=== PATIENT | male | born 1975 | race American Indian/Alaskan Native ===

== ENCOUNTER 2018-04-19 09:54 | Emergency (ER) | payer OTHER ==
[~2018-04-19 09:54] MED LIST: ADRENALIN ONE; D50W (25GM) Syringe IV ONE; SODIUM BICARBONATE IV ONE
[2018-04-19] MEDS ORDERED: NACL 0.9% 1000 ML 1,000 ML IV ONE (09:55)
--- NOTE | 2018-04-19 10:19 | Emergency Department Report ---
ED CPR HPI - General Stated Complaint: CARDIAC ARREST Time Seen by Provider: 04/19/18 10:15 Source: EMS - History of Present Illness Initial Comments: Patient is 42 years old male with history of hypertension. Patient brought into the ER in full cardiac arrest, CPR in progress. EMS stated that they received a call from the family that patient is not responding. Family stated that last time the patient was seen normal was 7:00 this morning when he went to the bathroom. EMS report that patient was found unresponsive with no spontaneous breathing, patient immediately intubated by EMS, ACLS protocol initiated and continued patient initial rhythm was asystole and patient continued to be in asystole throughout resuscitation. Upon arrival to the ER, ACLS protocol continued. ET tube confirmed by me, by good breath sounds on both sides and capnometry. Patient continued to be in asystole. Patient pronounced at 10:05 AM. For further information please refer to the code sheets. Family informed. Family stated that he was complaining of headache yesterday. MD Complaint: found unresponsive Onset/Timin -: hour(s) Place: home Bystander CPR Performed: No AED Applied by Bystander/Assembly Manager: No Shock Advised: No Initial Findings in the Field: no respirations, no pulse, systole Treatments Prior to Arrival: intubation, epinephrine mgs # (3 mg), sodium bicarbonate ED Review of Systems ROS: Stated complaint: CARDIAC ARREST Other details as noted in HPI Comment: Unobtainable due to pts medical conditions ED Past Medical Hx - Past Medical History Hx Hypertension: Yes ED Physical Exam - General General appearance: other (intubated) - Head Head exam: Present: atraumatic, normocephalic - Eye Pupils: Present: other (pupils 4 mm, fixed and dilated and nonreactive to light. ) - ENT ENT exam: Present: normal exam - Respiratory Respiratory exam: Present: other (no spontaneous respiration) - Cardiovascular Cardiovascular Exam: Present: other (no heart tones, no pulse) - GI/Abdominal GI/Abdominal exam: Present: soft. Absent: distended - Neurological Exam Neurological exam: Present: other (intubated) - Skin Skin exam: Present: warm, intact Critical Care Time: Yes Critical care time in (mins) excluding proc time.: 30 Critical care attestation.: If time is entered above; I have spent that time in minutes in the direct care of this critically ill patient, excluding procedure time. ED Disposition Clinical Impression: Cardiopulmonary arrest Disposition: DC-20 Is pt being admited?: No Condition: Stable Referrals: PRIMARY CARE,MD [Primary Care Provider] - 3-5 Days
[2018-04-19] MEDS ORDERED: NACL 0.9% 1000 ML 1,000 ML ONE (10:35)
== END 2018-04-19 12:06 ==
LOC: ED 09:54
DX: I46.9 Cardiac arrest, cause unspecified (principal); I10 Essential (primary) hypertension
CPT/HCPCS: 82962; 92950; 99291; J0171; J7030